=== PATIENT | male | born 1980 ===

== ENCOUNTER 2017-08-09 15:49 | Emergency (ER) | payer OTHER ==
[2017-08-09 16:03] VITALS: BP 113/57; PULSE 62; RESP 18; TEMP 97.7; O2SAT 99
--- NOTE | 2017-08-09 16:30 | ED PDOC ---
HPI: Back Time Seen by Provider: 08/09/17 16:06 Chief Complaint (Nursing): Back Pain Chief Complaint (Provider): Back pain History Per: Patient History/Exam Limitations: no limitations Onset/Duration Of Symptoms: Persistent, Worse Since (2 days) Previous Symptoms: Back Pain Additional History Per: Patient Additional Complaint(s): 36yo male, history of back pain, presents to the ED for evaluation of worsening back pain, present for the past 2 days. 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 He states the pain is present in his lower back, radiates to his bilateral flank area and into his pelvic area. He denies any hematuria, dysuira, bladder or bowel disfunction. He also denies any lower extremity pain, numbness or tingling. Patient offers no other medical complaints. Past Medical History Reviewed: Historical Data, Nursing Documentation, Vital Signs Vital Signs: Last Vital Signs Temp 97.7 F 08/09/17 15:59 Pulse 62 08/09/17 15:59 Resp 18 08/09/17 15:59 BP 113/57 L 08/09/17 15:59 Pulse Ox 99 08/09/17 15:59 - Medical History PMH: Back Problems - Surgical History Surgical History: No Surg Hx - Family History Family History: States: No Known Family Hx - Living Arrangements Living Arrangements: With Family - Home Medications Home Medications: Ambulatory Orders Medication Instructions Recorded Back Brace [Back Stabilizer] 1 each MC DAILY #1 each 08/09/17 Cane 1 each MC DAILY #1 each 08/09/17 Cyclobenzaprine [Cyclobenzaprine 10 mg PO BID #14 tab 08/09/17 HCl] Tramadol HCl [Ultram] 50 mg PO Q6 #15 tab 08/09/17 - Allergies Allergies/Adverse Reactions: Allergies Allergy/AdvReac Type Severity Reaction Status Date / Time No Known Allergies Allergy Verified 08/09/17 15:59 Review of Systems Gastrointestinal: Positive for: Other (bilateral flank pain) Genitourinary Male: Negative for: Dysuria, Frequency, Incontinence, Hematuria Musculoskeletal: Positive for: Back Pain. Negative for: Leg Pain Neurological: Negative for: Weakness, Numbness Physical Exam - Reviewed Nursing Documentation Reviewed: Yes Vital Signs Reviewed: Yes - Physical Exam Appears: Positive for: Non-toxic Neck: Positive for: Supple Cardiovascular/Chest: Positive for: Regular Rate, Rhythm Respiratory: Negative for: Respiratory Distress Gastrointestinal/Abdominal: Positive for: Other (pelvic tenderness noted) Back: Positive for: L CVA Tenderness, R CVA Tenderness. Negative for: Vertebral Tenderness Extremity: Positive for: Normal ROM. Negative for: Deformity, Swelling Neurologic/Psych: Positive for: Alert, Oriented - ECG O2 Sat by Pulse Oximetry: 99 (RA) Pulse Ox Interpretation: Normal Medical Decision Making Medical Decision Making: Time: 1627 Impression: Lower back pain Plan: -- CT AP w/o contrast -- UDip -- Toradol 30 mg IM Reassess -PT Ct scan: IMPRESSION: Unremarkable non contrast enhanced CT of the abdomen and pelvis. Pt strongly advised to have a pmd f.u will be d/c with ultram for pain and flexril for pain control. Rx for cane and Brace for back support. pt signed up for [facility] and will f.u with [facility] clinic. stable VS Scribe Attestation: Documented by Aaliyah Connors acting as a scribe for MANJINDER Hensley Provider Attestation: All medical record entries made by the Scribe were at my direction and personally dictated by me. I have reviewed the chart and agree that the record accurately reflects my personal performance of the history, physical exam, medical decision making, and the department course for this patient. I have also personally directed, reviewed, and agree with the discharge instructions and disposition. Disposition - Clinical Impression Clinical Impression: Low back pain - Patient ED Disposition Is Patient to be Admitted: No Counseled Patient/Family Regarding: Studies Performed, Diagnosis, Need For Followup, Rx Given - Disposition Referrals: [facility] [Outside] [facility] [Outside] Disposition: Routine/Home Disposition Time: 17:20 Condition: STABLE Prescriptions: Back Brace [Back Stabilizer] 1 each MC DAILY #1 each Cane 1 each MC DAILY #1 each Cyclobenzaprine [Cyclobenzaprine HCl] 10 mg PO BID #14 tab Tramadol HCl [Ultram] 50 mg PO Q6 #15 tab Instructions: Acute Low Back Pain (ED) Forms: [facility] ED School/Work Excuse Print Language: BERMUDIAN
--- NOTE | 2017-08-09 17:13 | CT ---
PROCEDURE: CT Abdomen and Pelvis without intravenous contrast HISTORY: b/l flank pain COMPARISON: None. TECHNIQUE: Technique. Contrast Dose: Radiation dose: Total exam DLP = mGy-cm. This CT exam was performed using one or more of the following dose reduction techniques: Automated exposure control, adjustment of the mA and/or kV according to patient size, and/or use of iterative reconstruction technique. FINDINGS: LOWER THORAX: Unremarkable. LIVER: Unremarkable. No gross lesion or ductal dilatation. GALLBLADDER AND BILE DUCTS: Unremarkable. PANCREAS: Unremarkable. No gross lesion or ductal dilatation. SPLEEN: Unremarkable. ADRENALS: Unremarkable. No mass. KIDNEYS AND URETERS: Unremarkable. No hydronephrosis. No solid mass. VASCULATURE: Unremarkable. No aortic aneurysm. BOWEL: Unremarkable. No obstruction. No gross mural thickening. APPENDIX: Unremarkable. Normal appendix. PERITONEUM: Unremarkable. No free fluid. No free air. LYMPH NODES: Unremarkable. No enlarged lymph nodes. BLADDER: Unremarkable. REPRODUCTIVE: Unremarkable. BONES: No acute fracture. OTHER FINDINGS: None. IMPRESSION: Unremarkable non contrast enhanced CT of the abdomen and pelvis.
== END 2017-08-09 17:33 | disposition home or self-care (01) ==
LOC: H.ER 15:49
DX: M54.5 Low back pain (principal); R10.9 Unspecified abdominal pain
CPT/HCPCS: 74176; 96372; 99282; J1885